=== PATIENT | male | born 1995 | race Caucasian/White ===

== ENCOUNTER 2020-07-13 15:52 | Emergency (ER) | payer MEDICAID ==
[~2020-07-13] VITALS: Ht 180.3 cm; Wt 67.0 kg
[2020-07-13] MEDS ORDERED: IBUPROFEN 600MG TABLET PO ONE (16:30)
[2020-07-13 17:56] VITALS: BP 128/71
== END 2020-07-13 17:57 | disposition home or self-care (01) ==
LOC: EDSEX 15:52 → ER 15:52
DX: S63.615A Unspecified sprain of left ring finger, initial encounter (principal); S63.613A Unspecified sprain of left middle finger, initial encounter; Z88.0 Allergy status to penicillin; X58.XXXA Exposure to other specified factors, initial encounter; Y93.89 Activity, other specified; Y92.89 Other specified places as the place of occurrence of the external cause; Y99.8 Other external cause status
CPT/HCPCS: 29130; 73130; 99283